=== PATIENT | female | born 1995 | race Two or more races ===

== ENCOUNTER 2023-05-03 17:59 | Emergency (ER) | payer MEDICAID, OTHER ==
[~2023-05-03] VITALS: Ht 154.9 cm; Wt 49.6 kg
[2023-05-03 20:04] LABS: Chloride 104 mmol/L (98-107); Sodium 136 mmol/L (136-145)
[2023-05-03 20:05] LABS: Anion Gap 9 (5-15); Carbon Dioxide 23 mmol/L (20-30)
[2023-05-03 20:10] LABS: BUN/Creatinine Ratio 14.8 (10.0-20.0); Blood Urea Nitrogen 9 mg/dL (9-23); Glucose 92 mg/dL (74-106)
[2023-05-03 20:55] VITALS: BP 101/58; PULSE 74; RESP 16; TEMP 99.6; O2SAT 98
[2023-05-03] MEDS ORDERED: ONDANSETRON ODT 4 MG TAB PO ONE (21:00)
[2023-05-03] MEDS ORDERED: NITR-87 PO (21:02)
== END 2023-05-03 22:18 | disposition home or self-care (01) ==
LOC: ER 17:59
DX: O20.0 Threatened abortion (principal); Z79.899 Other long term (current) drug therapy; Z3A.10 10 weeks gestation of pregnancy
CPT/HCPCS: 36415; 76801; 80048; 84702; 99284; Q0162